=== PATIENT | male | born 2000 | race Caucasian/White ===

== ENCOUNTER 2020-09-08 11:29 | Emergency (ER) | payer BC, SELFPAY ==
--- NOTE | ~2020-09-08 | XR_ITS ---
EXAMINATION: XR chest 2V DATE: 09/08/2020 11:47 INDICATION: Chest tightness. TECHNIQUE: Frontal and lateral views of the chest were obtained on 3 radiographs. COMPARISON: None. FINDINGS: The chest demonstrates clear lungs without pneumonia, pleural effusion, or pneumothorax. Th e heart size is normal. IMPRESSION: 1. No acute cardiopulmonary disease. Reviewed, dictated and finalized at location A.
[2020-09-08 11:32] VITALS: PULSE 105; RESP 16; TEMP 36.4; O2SAT 100
[2020-09-08 11:35] VITALS: PULSE 109
--- NOTE | 2020-09-08 11:39 | ECG_ITS ---
Measurements Intervals Mayer Rate: 102 P: 81 WV: 161 QRS: 95 QRSD: 114 T: 48 QT: 340 QTc: 443 Interpretive Statements SINUS TACHYCARDIA WITH SINUS ARRHYTHMIA POSSIBLE LEFT ATRIAL ENLARGEMENT RIGHT AXIS DEVIATION INCOMPLETE RIGHT BUNDLE BRANCH BLOCK MINIMAL Q WAVES- INFERIOR LEADS BASELINE ARTIFACT- I, II, AVR BORDERLINE ECG Electronically Signed On 09-08-2020 12:41:48 CDT by Jaswant Israel D.O.
[2020-09-08] MEDS: ASPIRIN 81 MG CHEWABLE TABLET 324 MG PO (11:45)
[2020-09-08 11:50] LABS: Basophils Percent Auto 0.4 % (0.2-1.2); Eosinophils Absolute Auto 0.1 K/mm3 (0-0.3); Eosinophils Percent Auto 1.7 % (0-4.4); Hematocrit 44.1 % (42.0-52.0); Hemoglobin 14.5 g/dL (14.0-18.0); Immature Granulocyte Absolute 0.03 K/mm3 (0.00-0.031); Immature Granulocyte Percent A 0.4 % (0-0.5); Lymphocytes Absolute Auto 2.31 K/mm3 (0.9-3.2); Mean Corpuscular HGB Conc 32.9 g/dl (32-36); Mean Corpuscular Hemoglobin 29.4 pg (26-34); Mean Corpuscular Volume 89.3 fl (80-100); Mean Platelet Volume 9.2 fl (7.4-10.4); Monocytes Absolute Auto 0.6 K/mm3 (0.1-0.6); Monocytes Percent Auto 8.2 % (2.6-8.5); Neutrophils Absolute Auto 4.6 K/mm3 (1.3-6.7); Neutrophils Percent Auto 59.3 % (45.5-73.1); Platelet Count Result 227 k/mm3 (150-375); Red Blood Count 4.94 M/mm3 (4.6-6.20); Red Cell Distribution Width 13.8 % (11.5-14.5); White Blood Count 7.7 K/mm3 (4.5-10.0)
[2020-09-08 11:59] LABS: Anion Gap 11 mmol/L (8-16); Blood Urea Nitrogen 19 mg/dL (9-20); Calcium 9.6 mg/dL (8.4-10.2); Carbon Dioxide 26 mmol/L (22-30); Chloride 101 mmol/L (98-107); Estimated CRCL calculation 99 ml/min; Estimated Glomerular Filt Rate > 60; Glucose 100 mg/dL (75-110); Potassium 3.7 mmol/L (3.4-5.0); Sodium 138 mmol/L (137-145)
[2020-09-08 12:05] LABS: Prothrombin Time 13.2 Seconds (11.1-14.7)
[2020-09-08 12:07] LABS: Partial Thromboplastin Time 26.5 SECONDS (22.3-36.8)
[2020-09-08 12:12] LABS: Troponin I < 0.012 ng/mL (0.000-0.034)
[2020-09-08] MEDS: LIDOCAINE HCL 2% VISC SOLN 15 ML UDC 20 ML PO (13:05)
[2020-09-08] MEDS: MAG HYDROX/AL HYDROX/SIMETH 30 ML UDC PO (13:06)
[2020-09-08] MEDS: PANTOPRAZOLE SODIUM IV 40 MG VIAL IV PUSH (13:06)
[2020-09-08] MEDS: IBUPROFEN IV 800 MG/200 ML 800 MG/200 ML BAG 400 MG IVPB (14:11)
[2020-09-08 14:36] VITALS: BP 122/78; PULSE 78; RESP 16; O2SAT 100
[2020-09-08 15:12] LABS: Troponin I < 0.012 ng/mL (0.000-0.034)
--- NOTE | 2020-09-08 15:15 | ED.GENADULT ---
HPI - General Adult General Chief complaint: Chest Pain Stated complaint: CP/Sob Time Seen by Provider: 09/08/20 11:33 Source: patient and RN notes reviewed Mode of arrival: ambulatory Limitations: no limitations History of Present Illness HPI narrative: Patient is a 20-year-old male who presents to emergency department for evaluation of midsternal chest discomfort that began in the late hours of last night roughly an hour after eating cheeseits. Patient on arrival notes mild discomfort is not take anything for his symptoms denies any recent illness or other complaints presents in no distress with his mother patient has otherwise been healthy historically Related Data Allergies Allergy/AdvReac Type Severity Reaction Status Date / Time No Known Allergies Allergy Verified 09/08/20 11:37 Review of Systems Review of Systems: All systems reviewed & are unremarkable except as noted in HPI and below PMFSH Social History Social History (Updated 09/08/20 @ 15:16 by Kahlil Andrade PA-C) Smoking status: Never smoker Exam Narrative: Exam Narrative: GENERAL: Well-appearing, well-nourished, and in no acute distress. HEAD: Normocephalic, atraumatic. EYES: PERRLA and EOMI. ENT: Nares clear, no rhinorrhea or epistaxis. Mucous membranes moist. CHEST: Clear to auscultation. No respiratory distress. No wheezes rales or rhonchi HEART: Regular rate and rhythm. No murmur heard. Normal peripheral pulses. ABDOMEN: Soft, nontender, nondistended. EXTREMITIES: Normal range of motion. No edema. SKIN: Warm, dry, no rash. NEURO: No focal deficits. Alert and oriented x3. PSYCH: Normal mood and affect. Course Course Emergency Course: ABCs and vital signs intact and stable no distress aware of case findings treatment plan diagnosis will be discharged home patient had improvement with ibuprofen no improvement with GI cocktail advised to follow back with primary care for further evaluation afebrile nontoxic-appearing no distress Vital Signs Vital signs: Vital Signs Temperature 97.6 F 09/08/20 11:32 Pulse Rate 105 H 09/08/20 11:32 Respiratory Rate 09/08/20 11:32 Pulse Oximetry 100 09/08/20 11:32 Temperature 97.6 F 09/08/20 11:32 Pulse Rate 78 09/08/20 14:36 Respiratory Rate 09/08/20 14:36 Blood Pressure 122/78 09/08/20 14:36 Pulse Oximetry 100 09/08/20 14:36 Medical Decision Making MDM Narrative Medical decision making narrative: Patients EKGs and labs are without significant high risk changes. Cardiac risk factors were reviewed. Patient is felt likely to be low risk for ACS and reasonable for further risk stratification testing as an outpatient. Pain was not sudden or maximal in onset without tearing or ripping. quality. No other signs or symptoms to suggest aortic dissection. A low-risk Wells criteria is noted. PE is felt to be unlikely. No pneumonia or URI symptoms were seen on evaluation today. Patient is felt to b reasonable for continued evaluation as an outpatient. Vital Signs Vital Signs: Vital Signs Temperature 97.6 F 09/08/20 11:32 Pulse Rate 105 H 09/08/20 11:32 Respiratory Rate 16 09/08/20 11:32 Pulse Oximetry 100 09/08/20 11:32 Temperature 97.6 F 09/08/20 11:32 Pulse Rate 78 09/08/20 14:36 Respiratory Rate 16 09/08/20 14:36 Blood Pressure 122/78 09/08/20 14:36 Pulse Oximetry 100 09/08/20 14:36 Lab Data Result diagrams: 09/08/20 11:42 09/08/20 11:42 Labs: Lab Results 09/08/20 09/08/20 09/08/20 Range/Units 11:42 11:42 11:42 WBC 7.7 (4.5-10.0) K/mm3 RBC 4.94 (4.6-6.20) M/mm3 Hgb 14.5 (14.0-18.0) g/dL Hct 44.1 (42.0-52.0) % MCV 89.3 (80-100) fl MCH 29.4 (26-34) pg MCHC 32.9 (32-36) g/dl RDW 13.8 (11.5-14.5) % Plt Count 227 (150-375) k/mm3 MPV 9.2 (7.4-10.4) fl Immature Gran % (Auto) 0.4 (0-0.5) % Neut % (Auto) 59.3 (45.5-73.1) % Lymph % (Auto) 30.0
[2020-09-08 15:37] VITALS: BP 120/55; PULSE 70; RESP 18; O2SAT 100
== END 2020-09-08 15:39 | disposition home or self-care (01) ==
PROVIDERS: Emergency Provider Emergency Medicine; PCP Pediatrics
DX: R07.89 Other chest pain (principal); R00.0 Tachycardia, unspecified; R94.31 Abnormal electrocardiogram [ECG] [EKG]; I45.10 Unspecified right bundle-branch block
CPT/HCPCS: 36415; 71046; 80048; 84484; 85025; 85610; 85730; 93005; 96365; 96375; 99284; A9270; C9113; J1741

== ENCOUNTER 2025-02-21 17:39 | Emergency (ER) | payer SELFPAY ==
--- OUTSIDE RECORDS SUMMARY | 2025-02-21 17:41 | XMS_ITS | Clinical Summary ---
Author Organization [facility] Address [address] [place] [address] Care Team Providers Care Damper Worker Name Role Phone Delfin Arambula MD Primary Care Provider [phone] Allergies No known active allergies Medications naproxen sodium 220 mg capsule Take 220 mg by mouth every 12 (twelve) hours Active Active Problems Problem Noted Date Diagnosed Date Knee pain 07/24/2016 Arthralgia of shoulder 05/03/2015 Family History Medical History Relation Name Comments No Known Problems Father No Known Problems Mother Relation Name Status Comments Father Mother Social History Tobacco Use Types Packs/Day Years Used Date Smoking Tobacco: Never Personal Safety Answer Date Recorded Getting School Help Needed Not on file 04/23 Sex and Gender Information Value Date Recorded Sex Assigned at Not on file 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 Gender Identity Not on file Sexual Orientation Not on file Last Filed Vital Signs Vital Sign Reading Time Taken Comments Blood Pressure - - Pulse - - Temperature - - Respiratory Rate - - Oxygen Saturation - - Inhaled Oxygen Concentration - - Weight 79.4 kg (175 lb) 08/14/2020 11:15 AM CDT Height 193 cm (6' 4) 08/14/2020 11:15 AM CDT Body Mass Index 21.3 08/14/2020 11:15 AM CDT Plan of Treatment Not on file Insurance [employer] ACCESS CHOICE BLUE ACC[place] CHOICE [place] Care Teams Damper Worker Relationship Specialty Start Date End Date Delfin Arambula MD [address] [place] [address] PCP - General 07/24/16
[2025-02-21 17:52] VITALS: BP 147/86; PULSE 122; RESP 18; TEMP 36.5; O2SAT 98
[2025-02-21 21:44] VITALS: BP 147/93; PULSE 122; RESP 18; O2SAT 98
[2025-02-21 23:32] VITALS: BP 160/112; PULSE 109; RESP 14; O2SAT 96
--- NOTE | 2025-02-21 23:51 | ED.ALCOHOL ---
HPI - Alcohol General Chief Complaint: Alcohol Stated Complaint: ETOH Time Seen by Provider: 02/21/25 23:04 History of Present Illness HPI narrative: 24-year-old male with a history of alcohol use disorder and binge drinking disorder presenting to the emergency department feeling like he is having withdrawals. States he drinks a fifth per day at least. Patient states he has had increased alcohol bingeing this last week and he can go very long periods of time without feeling withdrawal symptoms would like nauseousness, vomiting, anxiety and tremulousness. Has never sought help for his alcohol use before. States he just wants to feel normal . His denies any SI or HI thoughts. States he has lack of appetite from the nauseousness and vomits with minimal food. His last alcoholic intake was about 7 hours ago now. Has never been on any medications for alcohol use. Endorses nicotine abuse as well but no other intoxicants or substances. He does not feel intoxicated at this time. States that he has never been really evaluated for health concerns recently and does not take any medications and has no allergies. Was otherwise in his normal state of health. Denies any falls or injuries or recent hospital visits. Related Data Allergies Allergy/AdvReac Type Severity Reaction Status Date / Time No Known Allergies Allergy Verified 02/21/25 17:40 Review of Systems Review of Systems: As reviewed above in HPI All systems reviewed & are unremarkable except as noted in HPI and below PMFSH Social History Social History (Updated 09/08/20 @ 15:16 by Kahlil Andrade, LORENA) Smoking status: Never smoker Exam Narrative: GENERAL: [Well-appearing, well-nourished, and in no acute distress.] HEAD: [Normocephalic, atraumatic.] EYES: [PERRLA and EOMI.] ENT: Nares clear, no rhinorrhea or epistaxis. Mucous membranes moist. NECK: Supple. CHEST: [Clear to auscultation. No respiratory distress.] HEART: tachycardic rate, regular rhythm, warm extremities. ABDOMEN: [Soft, nondistended], [nontender], [No rigidity or guarding] EXTREMITIES: Normal range of motion. [No edema.] SKIN: Warm, dry, no rash. NEURO: [No focal deficits]. Alert and oriented [x3.] PSYCH: anxious mood and affect, no SI or HI Course Vital Signs Vital signs: Vital Signs Temperature 36.5 C 02/21/25 17:52 Pulse Rate 122 H 02/21/25 17:52 Respiratory Rate 18 02/21/25 17:52 Blood Pressure 147/86 H 02/21/25 17:52 Pulse Oximetry 98 02/21/25 17:52 Oxygen Delivery Room Air 02/21/25 17:52 Temperature 36.6 C 02/22/25 03:25 Pulse Rate 79 02/22/25 03:01 Respiratory Rate 17 02/22/25 03:01 Blood Pressure 165/91 H 02/22/25 03:01 Pulse Oximetry 95 02/22/25 03:01 Oxygen Delivery Room Air 02/21/25 17:52 MDM MDM Narrative Medical decision making narrative: 24-year-old male with a history of alcohol use disorder and binge drinking disorder presenting to the emergency department feeling like he is having withdrawals. States he drinks a fifth per day at least. Patient states he has had increased alcohol bingeing this last week and he can go very long periods of time without feeling withdrawal symptoms would like nauseousness, vomiting, anxiety and tremulousness. Has never sought help for his alcohol use before. States he just wants to feel normal . His denies any SI or HI thoughts. States he has lack of appetite from the nauseousness and vomits with minimal food. His last alcoholic intake was about 7 hours ago now. Has never been on any medications for alcohol use. Endorses nicotine abuse as well but no other intoxicants or substances. He does not feel intoxicated at this time. States that he has never been really evaluated for health concerns recently and does not take any medications and has no allergies. Was otherwise in his normal state of health. Denies any falls or injuries or recent hospital visits. patient is tachycardic, hypertensive, anxious appearing. States he feels nauseous. Symptoms consistent with potential alcohol withdrawal especially with history of binge drinking. Patient is awake alert oriented. Would like to initiate some medications to help with the symptoms. Will obtain basic laboratory studies, TSH, electrolyte panel, alcohol level. Patient given D5 fluids thiamine and Zofran and placed on athletic monitor and re-evaluated. Laboratory studies consistent with alcoholic hepatitis and liver injury, no significant elevations. Does have some alcohol ketosis as well. His vital signs improved after phenobarbital administration for alcohol withdrawal after I discussed with him that he would like to start this medication. Given a 2nd dose for a full 10 mg per kg loading dose and discussed with him outpatient follow-up with resources for alcohol cessation and alcohol abuse. Patient hemodynamically improved, vital signs stable and laboratory studies without any significant concerns at this juncture and I did relay the results to the patient. He is safe to go home at this time with appropriate resources and return precautions. Differential Diagnosis Differential Diagnosis: Alcohol intoxication, alcohol withdrawal, anxiety, electrolyte imbalances, hypoglycemia Lab Data MDM Lab Attestation statement: I personally reviewed the patient's lab results. 02/22/25 00:27 02/22/25 00:27 Labs: Lab Results 02/22/25 02/22/25 Range/Units 00:27 00:58 WBC 6.6 (4.5-10.0) K/mm3 RBC 5.15 (4.6-6.20) M/mm3 Hgb 16.2 (14.0-18.0) g/dL Hct 47.2 (42.0-52.0) % MCV 91.7 (80-100) fl MCH 31.5 (26-34) pg MCHC 34.3 (32-36) g/dl RDW 13.1 (11.5-14.5) % Plt Count 241 (150-375) k/mm3 MPV 8.6 (7.4-10.4) fl Immature Gran % (Auto) 0.2 (0-0.5) % Neut % (Auto) 62.6 (45.5-73.1) % Lymph % (Auto) 27.9 (18.3-44.2) % Mclean % (Auto) 7.5 (2.6-8.5) % Eos % (Auto) 1.2 (0-4.4) % Baso % (Auto) 0.6 (0.2-1.2) % Lymph # (Auto) 1.85 (0.9-3.2) K/mm3 Mclean # (Auto) 0.5 (0.1-0.6) K/mm3 Eos # (Auto) 0.1 (0-0.3) K/mm3 Baso # (Auto) 0.0 (0.0-0.1) K/mm3 Abs Immat Gran (auto) 0.01 (0.00-0.031) K/mm3 Absolute Neuts (auto) 4.2 (1.3-6.7) K/mm3 Absolute Nucleated RBC 0.000 (0.0-0.012) K/mm3 Nucleated RBC % 0.0 (0.0-0.2) % Sodium 139 (137-145) mmol/L Potassium 4.0 (3.4-5.0) mmol/L Chloride 96 L (98-107) mmol/L Carbon Dioxide 26 (22-30) mmol/L Anion Gap 17 H (4-12) mmol/L BUN 10 D (9-20) mg/dL Creatinine 1.05 (0.7-1.3) mg/dL Estim Creat Clear Calc 118 ml/min Estimated GFR > 60 (59 - ) Glucose 90 (65-110) mg/dL Calcium 9.8 (8.4-10.2) mg/dL Magnesium 2.1 (1.6-2.3) mg/dL Total Bilirubin 1.2 (0.2-1.3) mg/dL AST 196 H (17-59) U/L ALT 189 H (6-50) U/L Alkaline Phosphatase 76 (38-126) U/L Total Protein 9.0 H (6.3-8.2) g/dL Albumin 5.4 H (3.5-5.1) g/dL TSH (Reflex) 6.890 H (0.465-4.68) uIU/mL Free T4 Pending Urine Opiates Screen Negative (Negative) Urine Methadone Screen Negative (Negative) Ur Barbiturates Screen Negative (Negative) Ur Phencyclidine Scrn Negative (Negative) Ur Amphetamine Screen Negative (Negative) U Benzodiazepines Scrn Negative (Negative) Urine Cocaine Screen Negative (Negative) U Cannabinoids Screen Negative (Negative) Ethyl Alcohol 81 (<10) mg/dL Discharge Plan Discharge Clinical Impression: Alcohol withdrawal syndrome, Alcohol abuse Patient Disposition: Home Condition: Stable Instructions: Antibiotic Form, Abuse of Alcohol (ED), Alcohol Withdrawal (ED) Additional Instructions: Laboratory studies show elevated liver enzymes from alcohol abuse but otherwise no signs of malnutrition electrolyte derangements, infection or inflammation. Your vital signs have improved after initiation of phenobarbital which is a potent medication for alcohol withdrawal symptoms and is self tapering. You were given the loading dose here as well as resources for substance and alcohol abuse for follow-up instructions. Please refrain from drinking any alcohol while you are on this medication as the effects of alcohol can be amplified. Return with any emergent concerns otherwise follow-up with resources provided and allow the medication to take effect over the next few days. Patient Language: Citizen [place] Prescriptions: No Action famotidine [Pepcid] 20 mg tablet 20 mg PO BID Qty: 14 0RF ibuprofen [IBU] 600 mg tablet 600 mg PO QID PRN (Reason: fever or pain) Qty: 7 0RF Follow-up/Referrals: [facility] [Outside] - 2 Days Referral Note: Alcohol abuse Delfin Arambula MD [Physician, Pediatrics] Time of Disposition: 03:07
[2025-02-22] VITALS (8 sets, daily range): BP systolic 138–165; BP diastolic 88–111; PULSE 79–91; RESP 12–23; TEMP 36.6; O2SAT 91–97
--- OUTSIDE RECORDS SUMMARY | 2025-02-22 00:04 | XMS_ITS | Clinical Summary ---
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
[2025-02-22] MEDS: ONDANSETRON INJ 4 MG/2 ML VIAL IV PUSH (00:25)
[2025-02-22] MEDS: DEXTROSE 5%/LACTATED RINGERS 1,000 ML 1000 ML IV CONT (00:25)
[2025-02-22] MEDS: THIAMINE HCL 200 MG/2 ML VIAL 100 MG IV PUSH (00:25)
[2025-02-22 00:38] LABS: Hematocrit 47.2 % (42.0-52.0); Hemoglobin 16.2 g/dL (14.0-18.0); Immature Granulocyte Percent A 0.2 % (0-0.5); Lymphocytes Absolute Auto 1.85 K/mm3 (0.9-3.2); Mean Corpuscular HGB Conc 34.3 g/dl (32-36); Mean Corpuscular Hemoglobin 31.5 pg (26-34); Mean Corpuscular Volume 91.7 fl (80-100); Nucleated Red Blood Cells Absolute Auto 0.000 K/mm3 (0.0-0.012); Nucleated Red Blood Cells Perc 0.0 % (0.0-0.2); Platelet Count Result 241 k/mm3 (150-375); Red Blood Count 5.15 M/mm3 (4.6-6.20); White Blood Count 6.6 K/mm3 (4.5-10.0)
[2025-02-22 00:46] LABS: Alanine Aminotransferase 189 U/L (6-50); Albumin Level 5.4 g/dL (3.5-5.1); Alkaline Phosphatase 76 U/L (38-126); Anion Gap 17 mmol/L (4-12); Aspartate Amino Transferase 196 U/L (17-59); Bilirubin,Total 1.2 mg/dL (0.2-1.3); Blood Urea Nitrogen 10 mg/dL (9-20); Calcium 9.8 mg/dL (8.4-10.2); Carbon Dioxide 26 mmol/L (22-30); Chloride 96 mmol/L (98-107); Estimated CRCL calculation 118 ml/min; Estimated Glomerular Filt Rate > 60; Glucose 90 mg/dL (65-110); Magnesium 2.1 mg/dL (1.6-2.3); Potassium 4.0 mmol/L (3.4-5.0); Sodium 139 mmol/L (137-145); Total Protein 9.0 g/dL (6.3-8.2)
[2025-02-22 01:20] LABS: Cannabinoid Screen Urine Negative (Negative)
[2025-02-22 01:23] LABS: Thyroid Stimulating Hormone Reflex 6.890 uIU/mL (0.465-4.68)
[2025-02-22] MEDS: PHENobarbitaL sodium (*CRX) 130 MG/ML VIAL 520 MG IV PUSH ×2 (02:07→02:51)
[2025-02-22 12:09] LABS: Free T4 Free Thyroxine Reflex 0.98 ng/dL (0.78-2.19)
[2025-02-22 13:04] LABS: Total Triiodothyronine (T3) 1.13 NG/ML (0.82-1.58)
== END 2025-02-22 03:27 | disposition home or self-care (01) ==
PROVIDERS: Emergency Provider Student in an Organized Health Care Education/Training Program
DX: F10.139 Alcohol abuse with withdrawal, unspecified (principal); Y90.4 Blood alcohol level of 80-99 mg/100 ml; Z72.0 Tobacco use
CPT/HCPCS: 36415; 80053; 80307; 82077; 83735; 84439; 84443; 84480; 85025; 96374; 96375; 96376; 99284; J2405; J2560; J3411; J7121